=== PATIENT | female | born 1985 | race African-American/Black ===

== ENCOUNTER 2017-01-07 13:39 | Emergency (ER) | payer SELFPAY ==
[2017-01-07] MEDS ORDERED: ALBUTEROL SULFATE/IPRATROPIUM 3 ML NEBU IH ONE ×2 (13:57→14:04)
--- NOTE | 2017-01-07 14:43 | ERNOTE ---
Date of Service: 01/07/17 Time Seen by Provider: 01/07/17 13:48 Stated Complaint: SOB ASTHMA Presenting Symptoms:: cough Source: patient Exam Limitations: no limitations Immunizations: IMMUNIZATION HX Immunizations Up to Date Yes Allergies/Adverse Reactions: Allergies No Known Allergies Allergy (Unverified 01/07/17 13:47) Home Medications: HOME MEDICATIONS Albuterol Sulfate [Proair Hfa] 2 puff IH Q4H PRN #1 inhaler 01/07/17 [Last Taken Unknown] Albuterol Sulfate [Proair Hfa] 2 puff IH QID PRN 01/07/17 [Last Taken Unknown] Azithromycin [Zithromax] 500 mg PO NOW #6 tab 01/07/17 [Last Taken Unknown] Prednisone 50 mg PO DAILY #5 tablet 01/07/17 [Last Taken Unknown] - History of Present Ilness Narrative: Patient presents to the ED for cough. She has been coughing for nearly a week. Bringing up yellow sputum. She relates she is out of her albuterol inhaler. She called her doctor to see if she could get antibiotics, prednisone and an inhaler refill and was directed. Here. Denies acute SOB. States with the coughing she will get SOB. Has felt feverish. No calf pain or leg swelling. She relates that with the harsh cough her upper abdomen will hurt at times but not right now. No specific CP. Timing: constant Frequency/Possible Cause: Reports: occasional episodes Modifying Factors - Improves: Reports: nothing Modifying Factors - Worsens: Reports: coughing Associated Symptoms: Reports: cough, nasal congestion Prior Treatment: Denies: recently seen Review of Systems - Review of Systems Constitutional: Absent: fever ENT: Present: nose congestion Respiratory: Present: cough Gastrointestinal/Abdominal: Absent: vomiting Genitourinary: Absent: dysuria Neurological: Absent: weakness - Patient's Past Medical History Patient History - Medical: No pertinent hx Patient History - Cardiac/Respiratory: Asthma Patient History - Cancer: No Hx of Cancer Patient History - Surgical Procedures: No surgical history Patient History - Other: None - Social History Living Situations: home Alcohol Use: none Drug Use: none - Immunizations Immunizations Up to Date: Yes Physical Exam - Physical Exam General Appearance: Present: alert, no apparent distress, other - speaking in full sentences, no distress. Frequent productive cough. Head Exam: Present: normal inspection, no evidence of injury Eye Exam: Normal inspection: bilateral Ears, Nose, Throat: Present: other - nasal congestion. No posterior oropharyngeal erythema. No DRIVING INSTRUCTOR, RPA or epiglottitis. SHe states she has a bad tooth that she has sen the dentist for. No ANUG or Anthony's angina Neck: Present: normal inspection Respiratory: Present: no respiratory distress, no accessory muscle use, other - few faint scattered wheezes with cough. No distress. Absent: respiratory distress, decreased breath sounds Cardiovascular/Chest: Present: regular rate, rhythm Gastrointestinal/Abdominal: Present: normal bowel sounds, nontender, soft Back Exam: Present: normal range of motion Extremity Exam: Present: normal inspection, other - No DVT findings Neurological Exam: Present: alert, normal mood/affect, no motor/sensory deficits Skin Exam: Present: normal color, warm/dry ED Progress - Vital Signs Patient's Vital Signs:: I have reviewed the patient's vital signs. Vital Signs: Vital Signs 01/07/17 01/07/17 01/07/17 13:42 14:02 14:05 Temperature 36.1 C L Pulse Rate 74 81 82 Respiratory 14 21 H 15 Rate Blood Pressure 148/90 129/91 O2 Sat by Pulse 96 95 96 Oximetry - Progress/Reassessment Chief Complaint: Upper Respiratory Symptoms Progress Note-Subjective: 01/07/17 14:42 I offered the patient a full workup. She declines labs and CXR and would just like treated. She understnds risks and benefits of this approach. I discussed warning signs and reasons to return as well as the need for close f/u. Departure - Departure Clinical Impression: Bronchitis Disposition: Home self-care Condition: Stable Instructions: Acute Bronchitis, [id number] Additional Instructions: Rest. Fluids. Medications as directed. Follow-up with primary doctor for a re -check as soon as possible. Return if you change your mind about having any of the testing we discussed, develop increased trouble breathing or if your condition worsens or changes in any way. Prescriptions: Albuterol Sulfate [Proair Hfa] 2 puff IH Q4H PRN #1 inhaler PRN Reason: Shortness Of Breath Azithromycin [Zithromax] 500 mg PO NOW #6 tab Prednisone 50 mg PO DAILY #5 tablet
[2017-01-07 14:49] VITALS: BP 126/91
== END 2017-01-07 14:47 | disposition home or self-care (01) ==
LOC: ER 13:39
DX: J40 Bronchitis, not specified as acute or chronic (principal)

== ENCOUNTER 2017-03-08 03:04 | Emergency (ER) | payer SELFPAY ==
[2017-03-08 03:09] VITALS: BP 138/92
[2017-03-08] MEDS ORDERED: AMOXICILLIN TRIHYDRATE 250 MG CAPSULE PO ONE (03:24)
[2017-03-08] MEDS ORDERED: IBUPROFEN 400 MG TABLET PO ONE (03:24)
--- NOTE | 2017-03-08 03:28 | ERNOTE ---
ENT HPI Presenting Symptoms: dental pain Time Seen by Provider: 03/08/17 03:23 Source: patient, RN notes reviewed Exam Limitations: no limitations - Immun/Allergies/Home Medications Immunizations: IMMUNIZATION HX Immunizations Up to Date Yes History of Influenza Vaccine Yes Hx Pneumococcal Vaccination No Allergies/Adverse Reactions: Allergies Allergy/AdvReac Type Severity Reaction Status Date / Time No Known Allergies Allergy Unverified 01/07/17 13:47 Home Medications: HOME MEDICATIONS Albuterol Sulfate [Proair Hfa] 2 puff IH Q4H PRN #1 inhaler 01/07/17 [Last Taken Unknown] Amoxicillin Trihydrate [Amoxil] 500 mg PO Q8H #30 capsule 03/08/17 [Last Taken Unknown] Ibuprofen 800 mg PO Q8H PRN #30 tablet 03/08/17 [Last Taken Unknown] - History of Present Illness Narrative: Patient complains of dental pain from multiple dental abscesses. She has seen a dentist back in [place], but the pain is back, and her mouth is hurting. She requests penicillin and ibuprofen. ENT Location: Present: dental Prearrival Treatment: Present: no prearrival treatment Modifying Factors - Improves: Reports: antibiotics Modifying Factors - Worsens: Reports: other - eating, cold Associated Symptoms - ENT: Reports: denies symptoms Review of Systems - Review of Systems Constitutional: Absent: recent illness, fever, chills EYE: Absent: eye pain ENT: Present: other - dental pain in multiple areas. Absent: ear pain Respiratory: Absent: shortness of breath, cough Cardiology: Absent: chest pain Gastrointestinal/Abdominal: Absent: nausea, vomiting, diarrhea Genitourinary: Absent: frequency, pain Musculoskeletal: Absent: back pain, muscle pain, muscle stiffness, neck pain, joint pain Skin: Absent: rash Neurological: Absent: anxiety, depressed Endocrine: Present: no symptoms reported Hematologic/Lymphatic: Present: no symptoms reported Psych: Present: no symptoms reported - Patient's Past Medical History Patient History - Medical: No pertinent hx Patient History - Cardiac/Respiratory: Asthma Patient History - Cancer: No Hx of Cancer Patient History - Surgical Procedures: No surgical history Patient History - Other: None - Social History Living Situations: home Smoking Status: Former smoker Have you smoked in the past 12 months: No Do you dip or chew tobacco: No Alcohol Use: none Drug Use: none - Immunizations Immunizations Up to Date: Yes Hx Pneumococcal Vaccination: No History of Influenza Vaccine: Yes Physical Exam - Physical Exam General Appearance: Present: wd/wn, alert, no apparent distress Head Exam: Present: normal inspection, no evidence of injury Eye Exam: Normal inspection: bilateral, PERRL: bilateral, EOMI: bilateral Ears, Nose, Throat: Present: other - multiple caries in various areas with tenderness to palpation Neck: Present: normal inspection, nontender Respiratory: Present: no respiratory distress, normal breath sounds, no accessory muscle use Cardiovascular/Chest: Present: regular rate, rhythm, no murmur Gastrointestinal/Abdominal: Present: normal bowel sounds, nontender, nondistended, soft Back Exam: Present: normal inspection, normal range of motion Extremity Exam: Present: normal inspection, non-tender, normal range of motion, no edema Neurological Exam: Present: alert, oriented, normal mood/affect, no motor/ sensory deficits Skin Exam: Present: normal color, warm/dry Lymphatic Exam: Present: no adenopathy ED Progress - Vital Signs Patient's Vital Signs:: I have reviewed the patient's vital signs. Vital Signs: Vital Signs 03/08/17 03:06 Temperature 36.8 C Pulse Rate 72 Respiratory 16 Rate Blood Pressure 138/92 O2 Sat by Pulse 99 Oximetry - Progress/Reassessment Chief Complaint: Dental Problem Progress:: Unchanged Progress Note-Subjective: 03/08/17 04:19 Amoxicillin 500 mg PO Ibuprofen 800 mg PO Plan - Plan Plan: Scripts for amoxicillin and ibuprofen and discharge home Departure Clinical Impression: Dental abscess - Departure Disposition: Home self-care Condition: Good Instructions: Dental Abscess, [id number] Additional Instructions: Please find and establish with a dentist for further evaluation and care, in the next 10-14 days, sooner if no improvement. Prescriptions: Amoxicillin Trihydrate [Amoxil] 500 mg PO Q8H #30 capsule Ibuprofen 800 mg PO Q8H PRN #30 tablet PRN Reason: Pain
[2017-03-08] MEDS ORDERED: AMOXICILLIN TRIHYDRATE 250 MG CAPSULE ONE (03:30)
[2017-03-08] MEDS ORDERED: IBUPROFEN 400 MG TABLET ONE (03:30)
== END 2017-03-08 03:30 | disposition home or self-care (01) ==
LOC: ER 03:04
DX: K04.7 Periapical abscess without sinus (principal)

== ENCOUNTER 2017-05-16 10:26 | Emergency (ER) | payer MEDICAID ==
--- NOTE | 2017-05-16 10:50 | ERNOTE ---
Trauma/Assault HPI - Narrative Date of Service: 05/16/17 - General Stated Complaint: FALL Time Seen by Provider: 05/16/17 10:44 Source: patient, RN notes reviewed, old records Exam Limitations: no limitations - Immun/Allergies/Home Medications Immunizations: IMMUNIZATION HX Immunizations Up to Date Yes History of Influenza Vaccine No Hx Pneumococcal Vaccination No Allergies/Adverse Reactions: Allergies No Known Allergies Allergy (Verified 05/16/17 10:39) Home Medications: HOME MEDICATIONS Albuterol Sulfate [Proair Hfa] 2 puff IH Q4H PRN #1 inhaler 01/07/17 [Last Taken Unknown] Ibuprofen 800 mg PO Q8H PRN #30 tablet 03/08/17 [Last Taken Unknown] - History of Present Illness Date (Duration): 05/16/17 Time (Timing): 10:30 Narrative: 31 year old female brought to the ED by ambulance with her 3 children for a fall. She was standing on her counter, cleaning cabinets, when she lost her footing while climbing down, causing her to fall and strike her abdomen on the edge of the counter. She denies other injuries. She reports that she has been having lower abdominal and pelvic pain for several weeks. She thinks she may have a vaginal infection. She reports being seen and treated for this here recently. Her chart shows that she was here for dental pain and treated with amoxicillin. Location Occurred: Reports: home Pain Location: Reports: abdomen Method of Injury: Reports: fall Severity: mild Modifying Factors - (Improves): Reports: rest Modifying Factors - (Worsens): Reports: movement Loss of Consciousness: Reports: no loss of consciousness, remembers the event, remembers coming to hospital Review of Systems - Review of Systems Constitutional: Present: recent illness. Absent: fever, chills, malaise EYE: Present: no symptoms reported ENT: Present: no symptoms reported Respiratory: Absent: shortness of breath, cough Cardiology: Absent: chest pain, syncope Gastrointestinal/Abdominal: Present: nausea, abdominal pain. Absent: vomiting, diarrhea, constipation Genitourinary: Present: frequency, discharge. Absent: dysuria, hematuria Musculoskeletal: Absent: back pain, neck pain, joint pain Skin: Absent: rash, lesions, lumps Neurological: Absent: dizziness/light-headedness, weakness, numbness, tingling Endocrine: Present: no symptoms reported Hematologic/Lymphatic: Present: no symptoms reported Psych: Present: no symptoms reported - Patient's Past Medical History Patient History - Medical: No pertinent hx Patient History - Cardiac/Respiratory: Asthma Patient History - Cancer: No Hx of Cancer Patient History - Surgical Procedures: No surgical history Patient History - Other: None LMP (Calendar): 04/28/17 - Social History Living Situations: alone Abuse History: No History of abuse Psych History: No pertinent hx Smoking Status: Never smoker Have you smoked in the past 12 months: No Do you dip or chew tobacco: No Alcohol Use: none Drug Use: none - Immunizations Immunizations Up to Date: Yes Hx Pneumococcal Vaccination: No History of Influenza Vaccine: No Physical Exam - Physical Exam General Appearance: Present: wd/wn, alert, no apparent distress, other - appears uncomfortable with movement but able to ambulate to bathroom with little difficulty Head Exam: Present: normal inspection, no evidence of injury Eye Exam: Normal inspection: bilateral Ears, Nose, Throat: Present: normal ENT inspection, normal pharynx Neck: Present: normal inspection, nontender, supple, full range of motion Respiratory: Present: no respiratory distress, normal breath sounds, no accessory muscle use, chest nontender, lungs clear Cardiovascular/Chest: Present: regular rate, rhythm, no murmur, normal peripheral pulses Gastrointestinal/Abdominal: Present: normal bowel sounds, nondistended, soft, tenderness - throughout lower abdomen Rectal Exam: Present: deferred Pelvic Exam: Present: deferred Back Exam: Present: normal inspection, normal range of motion, no CVA tenderness , no vertebral tenderness Extremity Exam: Present: normal inspection, non-tender, normal range of motion, no edema Neurological Exam: Present: alert, oriented, no motor/sensory deficits, other - flat affect, depressed appearing. Absent: normal mood/affect Skin Exam: Present: normal color, warm/dry Detailed Trauma Exam Best Eye Response ([place]): (4) open spontaneously Best Verbal Response (Rajinder): (5) oriented Best Motor Response (Rajinder): (6) obeys commands [place] Total: 15 ED Progress - Results and Orders Patient's Lab Results:: I have reviewed the patient's lab results. - Vital Signs Patient's Vital Signs:: I have reviewed the patient's vital signs. Vital Signs: Vital Signs 05/16/17 10:32 Temperature 37.0 C Pulse Rate 81 Respiratory 14 Rate Blood Pressure 145/94 O2 Sat by Pulse 100 Oximetry - X-Ray X-Ray #1 X-Ray: abdomen Interpretation: Interp. by me X-ray Comments: Nonobstructive bowel gas pattern, no free air, mild stool retention - Progress/Reassessment Chief Complaint: Fall Progress:: Unchanged Progress Note-Subjective: 05/16/17 12:05 Labs and xray are unremarkable aside from positive UDS for marijuana, Chlamydia and GC are pending, informed patient that she would be contacted if these results are abnormal. She requests another round of antibiotics for her ongoing dental pain as she did not see a dentist after she was seen here for it 2 months ago. Instructed to see a dentist. She then asks for transportation arrangements to be made to get her and her 3 children back home. Departure Clinical Impression: Chronic dental pain Fall Qualifiers: Encounter type: initial encounter Qualified Code(s): W19.XXXA - Unspecified fall, initial encounter Abdominal pain Qualifiers: Abdominal location: lower abdomen, unspecified Qualified Code(s): R10.30 - Lower abdominal pain, unspecified - Departure Disposition: Home Follow Up Needed Condition: Stable Instructions: Dental Caries, [id number], Abdominal Pain, Adult, [id number] Additional Instructions: Tylenol and/or ibuprofen for pain You will be contacted with the results of your other tests if they are abnormal See a dentist Critical Care Time - Critical Care Critical Time Spent:: No
[2017-05-16 10:59] LABS: Hematocrit 38.1 % (37.0-47.0); Hemoglobin 12.5 gm/dL (12.5-16.0); Mean Cell Volume 91.6 fl (78-100); Mean Corpuscular Hgb Conc 32.8 g/dl (32-36); Mean Platelet Volume 9.7 fl (6.0-9.5); Neutrophil # 4.3 K/mm3 (1.3-6.0); Neutrophil % 61.7 % (42-75.0); Platelet Count 161 K/mm3 (150-450); Red Blood Count 4.16 M/mm3 (4.2-5.4); Red Cell Distribution Width 13.7 % (11.5-14.0); Urine Bilirubin Negative (NEGATIVE); Urine Blood Negative /ul (NEGATIVE); Urine Ketone Negative (NEGATIVE); Urine Nitrite Negative (NEGATIVE); Urine Protein Negative (NEGATIVE); Urine Specific Gravity >=1.030 SP.GR. (1.005-1.010); Urine Urobilinogen Normal (NORMAL)
[2017-05-16 11:05] LABS: Urine Appearance Clear; Urine Color Yellow
[2017-05-16 11:06] LABS: Urine Bacteria TRACE; Urine RBC None Seen /hpf (0-5); Urine WBC 0-5 /hpf (0-5)
[2017-05-16 11:12] LABS: Albumin * 3.5 gm/dl (3.4-5.0); Anion Gap 11.6 mmol/L (6.8-13.8); BUN/Creatinine Ratio 8.7 (9.0-21.6); Bilirubin, Total 0.2 mg/dL (0.0-1.1); Ca. Corrected For Albumin 8.8 mg/dL (8.4-10.2); Calcium * 8.7 mg/dL (7.9-10.9); Carbon Dioxide 28.4 mmol/L (24-32.6); Total Protein 7.4 gm/dL (6.2-8.2)
[2017-05-16 11:14] LABS: Cocaine Ur Negative (NEGATIVE); Urine Barbiturate Negative (NEGATIVE); Urine Benzodiazepines Negative (NEGATIVE); Urine Opiates Negative (NEGATIVE); Urine PCP Negative (NEGATIVE)
[2017-05-16 11:15] LABS: Urine THC Positive (NEGATIVE)
[2017-05-16 12:04] VITALS: BP 123/80
== END 2017-05-16 12:15 | disposition home or self-care (01) ==
LOC: ER 10:26
DX: K08.9 Disorder of teeth and supporting structures, unspecified (principal); G89.29 Other chronic pain; R10.30 Lower abdominal pain, unspecified; W17.89XA Other fall from one level to another, initial encounter; Y93.E9 Activity, other interior property and clothing maintenance; Y92.009 Unspecified place in unspecified non-institutional (private) residence as the place of occurrence of the external cause